=== PATIENT | female | born 1965 | race African-American/Black ===

== ENCOUNTER 2017-12-28 10:22 | Inpatient (IN) ==
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
[2017-12-28] MEDS ORDERED: Naloxone Inj 0.4 MG/ML Vial IV.PUSH PRN (11:07)
[2017-12-28] MEDS ORDERED: Post-op Orders (for Pharmacy) OTHER ONE (11:07)
[2017-12-28] MEDS ORDERED: Bisacodyl 10 MG Supp RECTAL PRN (11:07)
[2017-12-28 11:58] LABS: Baso % (Auto) 0.3 % (0.0-2.0); Hematocrit 29.2 % (35.0-46.0); Hemoglobin 9.3 gm/dL (11.6-15.3); Lymph # (Auto) 0.1 th/mm3 (1.0-4.8); Lymph % (Auto) 1.5 % (9.0-44.0); Mean Corpuscular HGB Conc 31.9 % (32.0-36.0); Mean Corpuscular Hemoglobin 28.2 pg (27.0-34.0); Mean Corpuscular Volume 88.4 fL (80.0-100.0); Mean Platelet Volume 8.9 fL (7.0-11.0); Mono # (Auto) 0.3 th/mm3 (0.0-0.9); Mono % (Auto) 4.8 % (0.0-8.0); Neut # (Auto) 5.3 th/mm3 (1.8-7.7); Neut % (Auto) 93.4 % (16.0-70.0); Platelet Count 65 th/mm3 (150-450); Red Cell Distribution Width 18.7 % (11.6-17.2); White Blood Count 5.6 th/mm3 (4.0-11.0)
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
[2017-12-28 12:30] LABS: Platelet Morphology Normal (Normal); Target Cells 1+
[2017-12-28 13:09] LABS: Activated Partial Thrombo Time 33.8 sec (24.3-30.1); INR 1.4 Ratio; Prothrombin Time 14.4 sec (9.8-11.6)
[2017-12-28 13:11] LABS: Albumin 2.4 g/dL (3.4-5.0); Anion Gap 12 meq/L (5-15); Aspartate Aminotransferase 78 U/L (15-37); Blood Urea Nitrogen 6 mg/dL (7-18); Calcium 7.9 mg/dL (8.5-10.1); Carbon Dioxide 25.1 meq/L (21.0-32.0); Chloride 106 meq/L (98-107); Glomerular Filtration Rate Greater Than 89 mL/min (>89); Glucose,Random 82 mg/dL (74-106); Sodium 143 meq/L (136-145)
[2017-12-28 13:14] LABS: Alanine Aminotransferase 24 U/L (10-53); Alkaline Phosphatase 109 U/L (45-117); Total Protein 7.7 g/dL (6.4-8.2)
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
[2017-12-28] MEDS: Sod Chloride 0.9% Inj 1,000 ML IV.CONT SCH ×2 (18:31→20:55)
[2017-12-28] MEDS: Senna/Docusate Sodium 8.6/50 MG Tablet PO SCH (20:54)
[2017-12-29 06:42] LABS: Baso % (Auto) 0.1 % (0.0-2.0); Hematocrit 36.6 % (35.0-46.0); Lymph # (Auto) 0.4 th/mm3 (1.0-4.8); Lymph % (Auto) 7.4 % (9.0-44.0); Mean Corpuscular HGB Conc 32.9 % (32.0-36.0); Mean Corpuscular Hemoglobin 28.8 pg (27.0-34.0); Mean Corpuscular Volume 87.5 fL (80.0-100.0); Mono # (Auto) 0.7 th/mm3 (0.0-0.9); Mono % (Auto) 14.5 % (0.0-8.0); Neut # (Auto) 3.8 th/mm3 (1.8-7.7); Platelet Count 62 th/mm3 (150-450); Red Blood Count 4.18 mil/mm3 (4.00-5.30); Red Cell Distribution Width 18.9 % (11.6-17.2); White Blood Count 4.8 th/mm3 (4.0-11.0)
[2017-12-29 06:50] LABS: Anion Gap 10 meq/L (5-15); Blood Urea Nitrogen 11 mg/dL (7-18); Calcium 7.8 mg/dL (8.5-10.1); Carbon Dioxide 25.4 meq/L (21.0-32.0); Chloride 103 meq/L (98-107); Glomerular Filtration Rate Greater Than 89 mL/min (>89); Glucose,Random 94 mg/dL (74-106); Potassium 3.7 meq/L (3.5-5.1); Sodium 138 meq/L (136-145)
[2017-12-29] MEDS: Senna/Docusate Sodium 8.6/50 MG Tablet PO SCH ×2 (08:53→20:22)
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
--- NOTE | 2017-12-29 12:29 | ECG ---
Date Performed: 12/28/2017 Time Performed: 21:25:00 PTAGE: 52 years EKG: Sinus rhythm NONSPECIFIC T-WAVE ABNORMALITY BORDERLINE ECG PREVIOUS TRACING : 08/06/2010 10.55 Since the previous tracing, no significant change noted DOCTOR: Francine Chadwick Interpretating Date/Time 12/29/2017 12:28:51
[2017-12-29] MEDS: Propranolol 10 MG Tablet PO SCH ×2 (12:44→20:22)
[2017-12-29] MEDS: Folic Acid 1 MG Tablet PO SCH (12:44)
[2017-12-29] MEDS: Lidocaine 5% Patch T-DERMAL SCH (12:45)
[2017-12-29] MEDS: Furosemide 40 MG Tablet PO SCH (12:45)
[2017-12-29] MEDS: Spironolactone 50 MG Tablet PO SCH ×2 (12:50→20:22)
--- NOTE | 2017-12-29 13:47 | XR ---
EXAM DATE: 12/29/2017 1:34 PM EDT AGE/SEX: 52 years / Female INDICATIONS: Increased right ankle pain CLINICAL DATA: This is the patient's initial encounter. Patient reports that signs and symptoms have been present for 1 day and indicates a pain score of 8/10. MEDICAL/SURGICAL HISTORY: . Right ankle fracture None. COMPARISON: [facility] [place], ANKLE COMPLETE RIGHT MIN 3V, 12/28/2017. . FINDINGS: Transverse fracture through the medial malleolus and lateral malleolus identified. Soft tissue swelli ng is seen. Splint in place. CONCLUSION: Stable appearance of the ankle. Electronically signed by: Scott Hernandez MD 12/29/2017 1:46 PM EDT
--- NOTE | 2017-12-29 14:15 | CT ---
EXAM DATE: 12/29/2017 2:09 PM EDT AGE/SEX: 52 years / Female INDICATIONS: Right ankle fracture. CLINICAL DATA: This is the patient's initial encounter. Patient reports that signs and symptoms have been present for 1 day and indicates a pain score of 8/10. MEDICAL/SURGICAL HISTORY: Hepatitis C. None. RADIATION DOSE: 5.12 CTDI (mGy) COMPARISON: [facility], ANKLE COMPLETE RIGHT MIN 3V, 12/29/2017. . TECHNIQUE: Multiple contiguous axial images were acquired using a multirow detector CT scanner witho ut contrast. Multiplanar reconstruction was performed in the sagittal and coronal planes. Using aut omated exposure control and adjustment of the mA and/or kV according to patient size, radiation dose was kept as low as reasonably achievable to obtain optimal diagnostic quality images. DICOM format i mage data is available electronically for review and comparison. FINDINGS: There is a comminuted fractures seen through the distal fibula at the level of the lateral malleolus, slightly displaced. In addition there is a transverse fracture through the medial malleolus. The tib iotalar joint is approximated. No other fractures are seen. CONCLUSION: 1. Distal tibia and fibular fractures are noted. Electronically signed by: Scott Hernandez MD 12/29/2017 2:14 PM EDT
[2017-12-29] MEDS ORDERED: Haloperidol Inj 5 MG/ML Ampul IV.PUSH PRN (16:59)
[2017-12-29] MEDS ORDERED: LORazepam 1 MG Tablet PO PRN (16:59)
[2017-12-29] MEDS ORDERED: Morphine Inj 4 MG/ML Vial IV.PUSH PRN (17:02)
[2017-12-29] MEDS ORDERED: Naloxone Inj 0.4 MG/ML Vial IV.PUSH PRN (17:02)
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
[2017-12-29] MEDS: traZODone 50 MG Tablet PO SCH (20:22)
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
[2017-12-30 04:27] LABS: Baso % (Auto) 0.3 % (0.0-2.0); Eos # (Auto) 0.1 th/mm3 (0.0-0.4); Eos % (Auto) 0.9 % (0.0-4.0); Hemoglobin 13.4 gm/dL (11.6-15.3); Lymph # (Auto) 0.7 th/mm3 (1.0-4.8); Lymph % (Auto) 12.1 % (9.0-44.0); Mean Corpuscular Hemoglobin 28.1 pg (27.0-34.0); Mean Corpuscular Volume 87.8 fL (80.0-100.0); Mean Platelet Volume 8.6 fL (7.0-11.0); Mono % (Auto) 15.5 % (0.0-8.0); Neut # (Auto) 4.4 th/mm3 (1.8-7.7); Neut % (Auto) 71.2 % (16.0-70.0); Platelet Count 84 th/mm3 (150-450); Red Blood Count 4.78 mil/mm3 (4.00-5.30); Red Cell Distribution Width 18.6 % (11.6-17.2); White Blood Count 6.2 th/mm3 (4.0-11.0)
[2017-12-30 04:41] LABS: Alanine Aminotransferase 28 U/L (10-53)
[2017-12-30 04:44] LABS: Alkaline Phosphatase 134 U/L (45-117); Total Protein 8.4 g/dL (6.4-8.2)
[2017-12-30 04:46] LABS: Albumin 2.4 g/dL (3.4-5.0); Anion Gap 8 meq/L (5-15); Aspartate Aminotransferase 70 U/L (15-37); Blood Urea Nitrogen 11 mg/dL (7-18); Calcium 8.2 mg/dL (8.5-10.1); Carbon Dioxide 28.8 meq/L (21.0-32.0); Chloride 98 meq/L (98-107); Glomerular Filtration Rate Greater Than 89 mL/min (>89); Glucose,Random 90 mg/dL (74-106); Sodium 135 meq/L (136-145)
[2017-12-30 04:47] LABS: Potassium 3.2 meq/L (3.5-5.1)
[2017-12-30 05:05] LABS: Platelet Morphology Normal (Normal)
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
[2017-12-30] MEDS: Folic Acid 1 MG Tablet PO SCH (08:19)
[2017-12-30] MEDS: Furosemide 40 MG Tablet PO SCH (08:19)
[2017-12-30] MEDS: Propranolol 10 MG Tablet PO SCH ×2 (08:19→20:13)
[2017-12-30] MEDS: Lidocaine 5% Patch T-DERMAL SCH (08:19)
[2017-12-30] MEDS: Spironolactone 50 MG Tablet PO SCH ×2 (08:19→20:13)
[2017-12-30] MEDS: Senna/Docusate Sodium 8.6/50 MG Tablet PO SCH ×2 (08:19→20:13)
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
[2017-12-30] MEDS ORDERED: Mag Sulf 1 gm/100 ml Premix 100 ML IV.SIG ONE (13:00)
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
[2017-12-30] MEDS ORDERED: Haloperidol Inj 5 MG/ML Ampul IV.PUSH PRN (15:59)
[2017-12-30] MEDS: traZODone 50 MG Tablet PO SCH (20:13)
[2017-12-31] MEDS ORDERED: Haloperidol Inj 5 MG/ML Ampul IV.PUSH ONE (00:30)
[2017-12-31 01:06] LABS: Hematocrit 42.1 % (35.0-46.0); Mean Corpuscular HGB Conc 33.2 % (32.0-36.0); Mean Corpuscular Hemoglobin 28.3 pg (27.0-34.0); Mean Corpuscular Volume 85.3 fL (80.0-100.0); Mean Platelet Volume 8.4 fL (7.0-11.0); Platelet Count 126 th/mm3 (150-450); Red Blood Count 4.93 mil/mm3 (4.00-5.30); Red Cell Distribution Width 18.3 % (11.6-17.2); White Blood Count 7.1 th/mm3 (4.0-11.0)
[2017-12-31 01:33] LABS: Anion Gap 13 meq/L (5-15); Blood Urea Nitrogen 8 mg/dL (7-18); Calcium 8.8 mg/dL (8.5-10.1); Carbon Dioxide 23.1 meq/L (21.0-32.0); Chloride 96 meq/L (98-107); Glomerular Filtration Rate Greater Than 89 mL/min (>89); Glucose,Random 83 mg/dL (74-106); Sodium 132 meq/L (136-145)
[2017-12-31 01:34] LABS: Potassium 3.4 meq/L (3.5-5.1)
--- NOTE | 2017-12-31 02:15 | CT ---
EXAM DATE: 12/31/2017 2:07 AM EDT AGE/SEX: 52 years / Female INDICATIONS: Altered mental status. CLINICAL DATA: This is the patient's initial encounter. Patient reports that signs and symptoms have been present for 1 day and indicates a pain score of Nonresponsive. MEDICAL/SURGICAL HISTORY: Anemia. Hepatitis C. Cardiovascular disease. Substance abuse None. RADIATION DOSE: 56.35 CTDI (mGy) COMPARISON: No prior exams available for comparison. TECHNIQUE: CT of the head without contrast. Using automated exposure control and adjustment of the mA and/or kV according to patient size, radiation dose was kept as low as reasonably achievable to ob tain optimal diagnostic quality images. DICOM format image data is available electronically for revi ew and comparison. FINDINGS: Cerebrum: There is mild generalized atrophy and ventricles are normal given the degree of atrophy. M ild periventricular white matter change is present. No midline shift, mass lesion, hemorrhage or acu te infarction. No extraaxial fluid collections are seen. Posterior Fossa: The cerebellum and brainstem demonstrate no acute abnormality. The 4th ventricle is midline. The cerebellopontine angle is within normal limits. Extracranial: The visualized sinuses are clear. Skull: The calvaria is intact. No skull fracture. CONCLUSION: No acute intracranial abnormality is identified. . Electronically signed by: Dalton Mann MD 12/31/2017 2:14 AM EDT
[2017-12-31 03:50] LABS: Hematocrit 38.1 % (35.0-46.0); Hemoglobin 12.5 gm/dL (11.6-15.3); Mean Corpuscular HGB Conc 32.7 % (32.0-36.0); Mean Corpuscular Hemoglobin 28.6 pg (27.0-34.0); Mean Corpuscular Volume 87.5 fL (80.0-100.0); Mean Platelet Volume 8.3 fL (7.0-11.0); Platelet Count 110 th/mm3 (150-450); Red Blood Count 4.35 mil/mm3 (4.00-5.30); Red Cell Distribution Width 18.5 % (11.6-17.2); White Blood Count 5.9 th/mm3 (4.0-11.0)
[2017-12-31 04:17] LABS: Anion Gap 13 meq/L (5-15); Blood Urea Nitrogen 8 mg/dL (7-18); Calcium 8.5 mg/dL (8.5-10.1); Carbon Dioxide 24.3 meq/L (21.0-32.0); Chloride 97 meq/L (98-107); Glomerular Filtration Rate Greater Than 89 mL/min (>89); Glucose,Random 78 mg/dL (74-106); Potassium 3.7 meq/L (3.5-5.1); Sodium 134 meq/L (136-145)
[2017-12-31] MEDS: Lidocaine 5% Patch T-DERMAL SCH (07:59)
[2017-12-31] MEDS: Folic Acid 1 MG Tablet PO SCH (08:02)
[2017-12-31] MEDS: Spironolactone 50 MG Tablet PO SCH ×2 (08:02→22:13)
[2017-12-31] MEDS: Propranolol 10 MG Tablet PO SCH ×2 (08:02→22:09)
[2017-12-31] MEDS: Furosemide 40 MG Tablet PO SCH (08:02)
[2017-12-31] MEDS: Senna/Docusate Sodium 8.6/50 MG Tablet PO SCH ×2 (08:02→22:09)
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
[2017-12-31] MEDS: traZODone 50 MG Tablet PO SCH (22:09)
[2018-01-01] MEDS: Spironolactone 50 MG Tablet PO SCH ×2 (09:00→23:21)
[2018-01-01] MEDS: Furosemide 40 MG Tablet PO SCH (09:00)
[2018-01-01] MEDS: Lidocaine 5% Patch T-DERMAL SCH (09:00)
[2018-01-01] MEDS: Propranolol 10 MG Tablet PO SCH ×2 (09:00→23:26)
[2018-01-01] MEDS: Senna/Docusate Sodium 8.6/50 MG Tablet PO SCH ×2 (09:00→23:20)
[2018-01-01] MEDS: Folic Acid 1 MG Tablet PO SCH (09:00)
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
[2018-01-01] MEDS: traZODone 50 MG Tablet PO SCH (23:21)
[2018-01-02] MEDS: Spironolactone 50 MG Tablet PO SCH ×2 (09:09→22:22)
[2018-01-02] MEDS: Folic Acid 1 MG Tablet PO SCH (09:09)
[2018-01-02] MEDS: Propranolol 10 MG Tablet PO SCH ×2 (09:09→22:22)
[2018-01-02] MEDS: Furosemide 40 MG Tablet PO SCH (09:10)
[2018-01-02] MEDS: Lidocaine 5% Patch T-DERMAL SCH (09:10)
[2018-01-02] MEDS: Senna/Docusate Sodium 8.6/50 MG Tablet PO SCH ×2 (09:10→22:22)
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
[2018-01-02] MEDS ORDERED: Neostigmine Inj 5 MG/5 ML Syringe IV.PUSH ONE (17:32)
[2018-01-02] MEDS ORDERED: Phenylephrine/NS 1000 MCG/10ML Syringe IV.PUSH ONE (17:32)
[2018-01-02] MEDS ORDERED: Glycopyrrolate Inj 1 MG/5 ML Syringe IV.PUSH ONE (17:32)
[2018-01-02] MEDS ORDERED: Lidocaine PF 1% Inj 5 ML Syringe INFILTRATN ONE (17:32)
[2018-01-02] MEDS ORDERED: Lidocaine 2% Inj 50 ML Vial ONE (17:35)
[2018-01-02] MEDS ORDERED: Bupivacaine PF 0.5% Inj 30 ML Vial ONE (19:41)
--- NOTE | 2018-01-02 20:01 | P.BOP ---
- Preoperative Diagnosis (1) Fracture of ankle, bimalleolar, right, closed - Postoperative Diagnosis (1) Fracture of ankle, bimalleolar, right, closed Date of procedure: 01/02/18 Procedure: 1) ORIF of the right ankle. Implants: see log Anesthesia: GETA Surgeon: Aye Villagomez DPM Estimated blood loss (mL): 15 Tourniquet time (min): 101 (Right thigh) Pathology: none sent Condition: stable Disposition: PACU
--- NOTE | 2018-01-02 20:11 | XR ---
EXAM DATE: 01/02/2018 8:03 PM EDT AGE/SEX: 52 years / Female INDICATIONS: ORIF right ankle. CLINICAL DATA: This is the patient's initial encounter. Patient reports that signs and symptoms have been present for 1 day and indicates a pain score of Nonresponsive. MEDICAL/SURGICAL HISTORY: None. None. COMPARISON: [facility] [place], CT ANKLE RIGHT W/O CONTRAST, 12/29/2017. . FINDINGS: Hardware is noted within the distal fibula and tibia status post ORIF. The bones are well aligned. CONCLUSION: Status post ORIF of right distal tibia and fibula with bones adequate in alignment. Electronically signed by: Ye William MD 01/02/2018 8:09 PM EDT
[2018-01-02] MEDS ORDERED: fentaNYL Citrate Inj 100 MCG/2 ML Ampul ONE (20:21)
--- NOTE | 2018-01-02 20:40 | XR ---
EXAM DATE: 01/02/2018 8:22 PM EDT AGE/SEX: 52 years / Female INDICATIONS: Post op, right ankle surgery. CLINICAL DATA: This is the patient's initial encounter. Patient reports that signs and symptoms have been present for 1 day and indicates a pain score of Nonresponsive. MEDICAL/SURGICAL HISTORY: Non-responsive. Non-responsive. COMPARISON: [facility], ANKLE COMPLETE RIGHT MIN 3V, 12/29/2017. . FINDINGS: Hardware is noted within the right distal fibula and tibia and appears to be adequate in position. CONCLUSION: Status post ORIF of right distal fibula and tibia with hardware in good position. Electronically signed by: Ye William MD 01/02/2018 8:38 PM EDT
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
[2018-01-02] MEDS: traZODone 50 MG Tablet PO SCH (22:22)
[2018-01-03 07:22] LABS: Baso % (Auto) 0.1 % (0.0-2.0); Hematocrit 39.8 % (35.0-46.0); Hemoglobin 13.1 gm/dL (11.6-15.3); Lymph # (Auto) 0.7 th/mm3 (1.0-4.8); Lymph % (Auto) 10.4 % (9.0-44.0); Mean Corpuscular HGB Conc 32.9 % (32.0-36.0); Mean Corpuscular Hemoglobin 28.7 pg (27.0-34.0); Mean Corpuscular Volume 87.3 fL (80.0-100.0); Mean Platelet Volume 8.2 fL (7.0-11.0); Mono # (Auto) 1.4 th/mm3 (0.0-0.9); Neut # (Auto) 4.9 th/mm3 (1.8-7.7); Neut % (Auto) 69.5 % (16.0-70.0); Platelet Count 119 th/mm3 (150-450); Red Blood Count 4.56 mil/mm3 (4.00-5.30); Red Cell Distribution Width 18.4 % (11.6-17.2)
[2018-01-03 07:41] LABS: Anion Gap 8 meq/L (5-15); Blood Urea Nitrogen 12 mg/dL (7-18); Carbon Dioxide 29.8 meq/L (21.0-32.0); Chloride 98 meq/L (98-107); Glomerular Filtration Rate Greater Than 89 mL/min (>89); Glucose,Random 115 mg/dL (74-106); Potassium 3.5 meq/L (3.5-5.1); Sodium 136 meq/L (136-145)
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
[2018-01-03] MEDS: Propranolol 10 MG Tablet PO SCH ×2 (09:50→22:26)
[2018-01-03] MEDS: Folic Acid 1 MG Tablet PO SCH (09:50)
[2018-01-03] MEDS: Spironolactone 50 MG Tablet PO SCH ×2 (09:50→22:26)
[2018-01-03] MEDS: Senna/Docusate Sodium 8.6/50 MG Tablet PO SCH ×2 (09:51→22:26)
[2018-01-03] MEDS: Furosemide 40 MG Tablet PO SCH (09:51)
[2018-01-03] MEDS: Lidocaine 5% Patch T-DERMAL SCH (11:56)
--- NOTE | 2018-01-03 15:15 | P.PNPOD ---
Subjective Interval history: s/p ORIF right bimalleolar ankle fracture, 01/02/18 Dr Villagomez Physical Exam Vital signs: Vital Signs 01/02/18 20:10 01/02/18 20:15 01/02/18 20:30 Temperature 97.4 F L Pulse Rate 78 72 74 Respiratory Rate 15 11 L 13 Blood Pressure 111/72 106/72 122/74 Pulse Oximetry 97 100 99 01/02/18 20:45 01/02/18 21:00 01/02/18 21:07 Temperature 97.2 F L Pulse Rate 73 74 78 Respiratory Rate 11 L 18 Blood Pressure 116/76 109/67 Pulse Oximetry 98 98 01/02/18 22:15 01/03/18 00:00 01/03/18 00:09 Temperature 97.3 F L Pulse Rate 80 75 Respiratory Rate 18 Blood Pressure 118/70 Pulse Oximetry 98 99 01/03/18 04:00 01/03/18 08:00 01/03/18 12:00 Temperature 97.5 F L 97.0 F L 97.3 F L Pulse Rate 82 79 76 Respiratory Rate 18 14 18 Blood Pressure 101/65 92/64 L 97/66 L Pulse Oximetry 98 98 94 L Intake & Output 01/02/18 01/03/18 01/03/18 18:59 06:59 18:59 Intake Total 1040 / 1040 Output Total 560 / 560 Balance 480 / 480 Weight 59.1 kg Intake: Oral 40 / 40 Anesthesia Amount 1000 / 1000 Output: Estimated Blood Loss 10 / 10 Urine Amount (Catheter) 550 / 550 Straight 550 / 550 Other: # Voids 1 Date of Last Bowel Movement 01/02/18 01/02/18 # Incontinent Bowel Movements 1 Narrative: Right ankle splint clean, dry, intact. Neurovascularly intact right lower extremity with brisk capillary refill and sensation intact to digits. Medications and Allergies Active Medications: Active Medications Al Hydroxide/Mg Hydroxide (Milk Of Magnesia Liq) 30 ml PO Q12H [facility] Last Admin: 01/03/18 09:51 Dose: Not Given Aripiprazole (Abilify) 20 mg PO DAILY [facility] Last Admin: 01/03/18 09:50 Dose: Not Given Bisacodyl (Dulcolax Supp) 10 mg RECTAL DAILY PRN PRN Reason: SEVERE CONSITIPATION Clonidine HCl (Catapres) 0.1 mg PO Q6H PRN PRN Reason: For SBP >/= 180, DBP >/= 100 Cyanocobalamin (Vitamin B12) 100 mcg PO DAILY [facility] Last Admin: 01/03/18 09:51 Dose: Not Given Cyclobenzaprine HCl (Flexeril) 5 mg PO Q8HR PRN PRN Reason: muscle spasms Diphenhydramine HCl (Benadryl) 25 mg PO Q6H PRN PRN Reason: ITCHING AND/OR RASH Flumazenil (Romazecon Inj) 0.2 mg IV.PUSH Q1M PRN PRN Reason: OVERSEDATION Folic Acid (Folic Acid) 1 mg PO DAILY [facility] Last Admin: 01/03/18 09:50 Dose: Not Given Furosemide (Lasix) 40 mg PO DAILY [facility] Last Admin: 01/03/18 09:51 Dose: Not Given Haloperidol Lactate (Haldol Inj) 2 mg IV.PUSH Q4H PRN PRN Reason: for severe agitation Last Admin: 12/30/17 21:08 Dose: 2 mg Ibuprofen (Motrin) 400 mg PO Q6HR PRN PRN Reason: PAIN SCALE 1 TO 2 Lactulose (Lactulose Liq) 30 ml PO DAILY [facility] Last Admin: 01/03/18 09:51 Dose: Not Given Lidocaine HCl (Lidoderm 5% Patch.12 Hr) 1 patch T-DERMAL DAILY [facility] Last Admin: 01/03/18 11:56 Dose: 1 patch Lorazepam (Ativan) 1 mg PO Q4H PRN PRN Reason: for CIWA 8-10 Last Admin: 12/30/17 20:25 Dose: 1 mg Lorazepam (Ativan) 2 mg PO Q2H PRN PRN Reason: for CIWA 11-14 Lorazepam (Ativan Inj) 2 mg IV.PUSH Q2H PRN PRN Reason: for CIWA 11-14 Last Admin: 12/31/17 07:58 Dose: 2 mg Lorazepam (Ativan Inj) 2 mg IV.PUSH Q1H PRN PRN Reason: for CIWA 15-20 Last Admin: 12/31/17 01:34 Dose: 2 mg Lorazepam (Ativan Inj) 2 mg IV.PUSH Q15M PRN PRN Reason: for CIWA > 20 Lorazepam (Ativan Inj) 1 mg IV.PUSH Q4H PRN PRN Reason: for CIWA 8-10 Miscellaneous (Pill Splitter) 1 each OTHER UNSCH PRN PRN Reason: SEE LABEL COMMENTS Miscellaneous Information ([facility] [place] [facility] [place] 1 each OTHER UNSCH PRN PRN Reason: SEE LABEL COMMENTS Stop: 01/03/18 20:26 Morphine Sulfate (Morphine Inj) 2 mg IV.PUSH Q4H PRN PRN Reason: BREAKTHROUGH PAIN Naloxone HCl (Narcan Inj) 0.4 mg IV.PUSH UNSCH PRN PRN Reason: SEE LABEL COMMENTS Ondansetron HCl (Zofran Inj) 4 mg IV.PUSH Q6H PRN PRN Reason: NAUSEA OR VOMITING Oxycodone HCl (Roxicodone) 5 mg PO Q4H PRN PRN Reason: PAIN SCALE 3 TO 5 Oxycodone HCl (Roxicodone) 10 mg PO Q4H PRN PRN Reason: PAIN SCALE 6 TO 10 Last Admin: 01/03/18 05:33 Dose: 10 mg Pantoprazole Sodium (Protonix) 40 mg PO BID [facility] Last Admin: 01/03/18 09:51 Dose: Not Given Patch Removal (Remove Old Patch) 1 each T-DERMAL [facility] Last Admin: 01/02/18 22:23 Dose: Not Given Propranolol HCl (Inderal) 10 mg PO BID [facility] Last Admin: 01/03/18 09:50 Dose: Not Given Senna/Docusate Sodium (Gladis-Colace) 1 tab PO BID [facility] Last Admin: 01/03/18 09:51 Dose: Not Given Sennosides (Senokot) 17.2 mg PO Q12H PRN PRN Reason: Moderate Constipation Sodium Chloride (Ns Flush) 2 ml IV.FLUSH UNSCH PRN PRN Reason: FLUSH AFTER USING IV ACCESS Spironolactone (Aldactone) 50 mg PO BID [facility] Last Admin: 01/03/18 09:50 Dose: Not Given Thiamine HCl (Vitamin B1) 100 mg PO DAILY [facility] Last Admin: 01/03/18 09:51 Dose: Not Given Trazodone HCl (Desyrel) 50 mg PO [facility] Last Admin: 01/02/18 22:22 Dose: Not Given Allergies Allergy/AdvReac Type Severity Reaction Status Date / Time No Known Allergies Allergy Unverified 12/28/17 10:40 Home Medications Medication Instructions Recorded Confirmed Type aripiprazole [Abilify] 20 mg PO DAILY 12/28/17 12/28/17 History cyanocobalamin-cobamamide [B12] 12/28/17 History folic acid 1 mg PO DAILY 12/28/17 12/28/17 History furosemide 40 mg PO DAILY 12/28/17 12/28/17 History pantoprazole 40 mg PO BID 12/28/17 12/28/17 History propranolol 10 mg PO BID 12/28/17 12/28/17 History spironolactone 50 mg PO BID 12/28/17 12/28/17 History trazodone 50 mg PO HS 12/28/17 12/28/17 History Results - Labs CBC & Chem 7: 01/03/18 06:52 01/03/18 06:52 Laboratory Results - last 24 hr 01/02/18 01/03/18 01/03/18 15:46 06:52 06:52 WBC 7.0 RBC 4.56 Hgb 13.1 Hct 39.8 MCV 87.3 MCH 28.7 MCHC 32.9 RDW 18.4 H Plt Count 119 L MPV 8.2 Neut % (Auto) 69.5 Lymph % (Auto) 10.4 [place] % (Auto) 20.0 H Eos % (Auto) 0.0 Baso % (Auto) 0.1 Neut # (Auto) 4.9 Lymph # (Auto) 0.7 L [place] # (Auto) 1.4 H Eos # (Auto) 0.0 Baso # (Auto) 0.0 WBC Differential . Differential Comment Auto diff final Sodium 136 Potassium 3.5 Chloride 98 Carbon Dioxide 29.8 Anion Gap 8 BUN 12 Creatinine 0.69 Estimated GFR Greater than 89 POC Glucose 94 Random Glucose 115 H Calcium 8.0 L 01/03/18 01/03/18 09:31 12:23 WBC RBC Hgb Hct MCV MCH MCHC RDW Plt Count MPV Neut % (Auto) Lymph % (Auto) [place] % (Auto) Eos % (Auto) Baso % (Auto) Neut # (Auto) Lymph # (Auto) [place] # (Auto) Eos # (Auto) Baso # (Auto) WBC Differential Differential Comment Sodium Potassium Chloride Carbon Dioxide Anion Gap BUN Creatinine Estimated GFR POC Glucose 163 H 108 Random Glucose Calcium - Imaging Impressions Ankle X-Ray 01/02/18 00:00 CONCLUSION: Status post ORIF of right distal fibula and tibia with hardware in good position. Ankle X-Ray 01/02/18 00:00 CONCLUSION: Status post ORIF of right distal tibia and fibula with bones adequate in alignment. Assessment and Plan - Assessment (1) Fracture of ankle, bimalleolar, right, closed Code(s): S82.841A - Displaced bimalleolar fracture of right lower leg, initial encounter for closed fracture Status: Acute Plan: No further surgery planned Nonweightbearing right lower extremity. Keep splint/dressing clean, dry, intact. Follow up with Dr Villagomez in 1 week after discharge in [place] office. Ok to transfer back to [facility] anytime, clear for d/c from Podiatry
[2018-01-03] MEDS: traZODone 50 MG Tablet PO SCH (22:27)
[2018-01-03] MEDS: Sod Chloride 0.9% Inj 1,000 ML IV.SIG SCH (23:30)
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
[2018-01-04] MEDS: Folic Acid 1 MG Tablet PO SCH (08:38)
[2018-01-04] MEDS: Sod Chloride 0.9% Inj 1,000 ML IV.SIG SCH ×2 (08:38→22:05)
[2018-01-04] MEDS: Senna/Docusate Sodium 8.6/50 MG Tablet PO SCH ×2 (08:38→22:05)
[2018-01-04] MEDS: Lidocaine 5% Patch T-DERMAL SCH (08:39)
[2018-01-04] MEDS: Spironolactone 50 MG Tablet PO SCH (08:39)
[2018-01-04] MEDS: Propranolol 10 MG Tablet PO SCH ×2 (08:39→22:05)
[2018-01-04] MEDS: Furosemide 40 MG Tablet PO SCH (08:39)
[2018-01-04] MEDS ORDERED: Sodium Chlor 0.9% Inj 500 ML IV.SIG SCH (09:00)
[2018-01-04] MEDS: Enoxaparin Inj 40 MG/0.4 ML Syringe SQ SCH (10:17)
[2018-01-05] MEDS: Spironolactone 50 MG Tablet PO SCH ×3 (00:16→21:59)
[2018-01-05] MEDS: traZODone 50 MG Tablet PO SCH ×2 (00:16→21:59)
[2018-01-05] MEDS: Propranolol 10 MG Tablet PO SCH ×2 (08:01→21:59)
[2018-01-05] MEDS: Lidocaine 5% Patch T-DERMAL SCH (08:01)
[2018-01-05] MEDS: Folic Acid 1 MG Tablet PO SCH (08:01)
[2018-01-05] MEDS: Enoxaparin Inj 40 MG/0.4 ML Syringe SQ SCH (08:02)
[2018-01-05] MEDS: Furosemide 40 MG Tablet PO SCH (08:02)
[2018-01-05] MEDS: Senna/Docusate Sodium 8.6/50 MG Tablet PO SCH ×2 (08:02→21:59)
[2018-01-05] MEDS: Sod Chloride 0.9% Inj 1,000 ML IV.SIG SCH ×2 (08:03→14:55)
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
[2018-01-06] MEDS: Sod Chloride 0.9% Inj 1,000 ML IV.SIG SCH ×2 (00:46→09:58)
[2018-01-06] MEDS ORDERED: Sod Chloride 0.9% Inj 1,000 ML IV.SIG SCH (07:30)
[2018-01-06] MEDS ORDERED: Sod Chloride 0.9% Inj 1,000 ML IV.SIG ONE (07:45)
[2018-01-06] MEDS: Enoxaparin Inj 40 MG/0.4 ML Syringe SQ SCH (09:00)
[2018-01-06] MEDS: Spironolactone 50 MG Tablet PO SCH ×2 (09:01→21:18)
[2018-01-06] MEDS: Folic Acid 1 MG Tablet PO SCH (09:01)
[2018-01-06] MEDS: Propranolol 10 MG Tablet PO SCH ×2 (09:01→21:18)
[2018-01-06] MEDS: Furosemide 40 MG Tablet PO SCH (09:02)
[2018-01-06] MEDS: Senna/Docusate Sodium 8.6/50 MG Tablet PO SCH ×2 (09:02→21:18)
[2018-01-06] MEDS: Lidocaine 5% Patch T-DERMAL SCH (09:02)
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
[2018-01-06] MEDS: traZODone 50 MG Tablet PO SCH (21:18)
[2018-01-07] MEDS: Sod Chloride 0.9% Inj 1,000 ML IV.SIG SCH (07:12)
[2018-01-07] MEDS: Enoxaparin Inj 40 MG/0.4 ML Syringe SQ SCH ×2 (07:54→12:19)
[2018-01-07] MEDS: Folic Acid 1 MG Tablet PO SCH ×2 (07:54→12:19)
[2018-01-07] MEDS: Spironolactone 50 MG Tablet PO SCH ×3 (07:55→20:26)
[2018-01-07] MEDS: Furosemide 40 MG Tablet PO SCH ×2 (07:55→12:19)
[2018-01-07] MEDS: Propranolol 10 MG Tablet PO SCH ×3 (07:55→20:27)
[2018-01-07] MEDS: Lidocaine 5% Patch T-DERMAL SCH ×2 (07:56→12:19)
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
[2018-01-07] MEDS: Senna/Docusate Sodium 8.6/50 MG Tablet PO SCH ×2 (12:19→20:32)
[2018-01-07] MEDS: traZODone 50 MG Tablet PO SCH (20:26)
[2018-01-08] MEDS: Spironolactone 50 MG Tablet PO SCH ×2 (08:45→20:06)
[2018-01-08] MEDS: Folic Acid 1 MG Tablet PO SCH (08:45)
[2018-01-08] MEDS: Propranolol 10 MG Tablet PO SCH ×2 (08:46→20:06)
[2018-01-08] MEDS: Senna/Docusate Sodium 8.6/50 MG Tablet PO SCH ×2 (08:46→20:06)
[2018-01-08] MEDS: Lidocaine 5% Patch T-DERMAL SCH (08:46)
[2018-01-08] MEDS: Enoxaparin Inj 40 MG/0.4 ML Syringe SQ SCH (08:46)
[2018-01-08] MEDS: Furosemide 40 MG Tablet PO SCH (08:46)
[2018-01-08] MEDS: Sod Chloride 0.9% Inj 1,000 ML IV.SIG SCH (08:50)
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
[2018-01-08] MEDS: traZODone 50 MG Tablet PO SCH (20:06)
[2018-01-09] MEDS: Enoxaparin Inj 40 MG/0.4 ML Syringe SQ SCH (08:19)
[2018-01-09] MEDS: Propranolol 10 MG Tablet PO SCH ×2 (08:19→20:24)
[2018-01-09] MEDS: Lidocaine 5% Patch T-DERMAL SCH (08:19)
[2018-01-09] MEDS: Spironolactone 50 MG Tablet PO SCH ×2 (08:19→20:24)
[2018-01-09] MEDS: Furosemide 40 MG Tablet PO SCH (08:19)
[2018-01-09] MEDS: Folic Acid 1 MG Tablet PO SCH (08:19)
[2018-01-09] MEDS: Senna/Docusate Sodium 8.6/50 MG Tablet PO SCH ×2 (08:52→20:24)
[2018-01-09] MEDS: Sod Chloride 0.9% Inj 1,000 ML IV.SIG SCH ×2 (08:52→18:05)
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
[2018-01-09] MEDS: traZODone 50 MG Tablet PO SCH (20:24)
[2018-01-10] MEDS: Furosemide 40 MG Tablet PO SCH (09:18)
[2018-01-10] MEDS: Propranolol 10 MG Tablet PO SCH ×2 (09:18→20:00)
[2018-01-10] MEDS: Spironolactone 50 MG Tablet PO SCH ×2 (09:18→20:00)
[2018-01-10] MEDS: Enoxaparin Inj 40 MG/0.4 ML Syringe SQ SCH (09:18)
[2018-01-10] MEDS: Folic Acid 1 MG Tablet PO SCH (09:18)
[2018-01-10] MEDS: Lidocaine 5% Patch T-DERMAL SCH (09:18)
[2018-01-10] MEDS: Senna/Docusate Sodium 8.6/50 MG Tablet PO SCH ×2 (09:19→20:01)
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
[2018-01-10] MEDS: Ibuprofen 400 MG Tablet PO PRN ×2 (12:33→18:31)
--- NOTE | 2018-01-10 13:44 | P.PNPOD ---
Subjective Interval history: s/p Right ankle ORIF DOS 01/02/18 Seen at [facility] with nursing staff in [facility]. AAO x 3 No sob and no calf pain. Physical Exam Vital signs: Vital Signs 01/09/18 15:25 01/09/18 20:00 01/09/18 20:06 Temperature 98.2 F 98.1 F Pulse Rate 90 80 80 Respiratory Rate 17 20 Blood Pressure 91/50 L 92/53 L Pulse Oximetry 97 94 L 01/10/18 00:00 01/10/18 00:03 01/10/18 04:00 Temperature 98.3 F 98 F Pulse Rate 80 79 77 Respiratory Rate 16 18 Blood Pressure 91/50 L 95/52 L Pulse Oximetry 93 L 93 L 01/10/18 08:00 Temperature 98.4 F Pulse Rate 69 Respiratory Rate 16 Blood Pressure 88/55 L Pulse Oximetry 94 L Intake & Output 01/09/18 01/10/18 01/10/18 18:59 06:59 18:59 Intake Total 1850 / 1850 240 / 240 Output Total 1000 / 1000 400 / 400 300 / 300 Balance 850 / 850 -160 / -160 -300 / -300 Weight 58.4 kg Intake: IV 1000 / 1000 NS Inj 1,000 ML @ 50 mls/hr IV. 1000 / 1000 SIG .Q20H [facility] Rx#:[id number] Oral 850 / 850 240 / 240 Output: Urine Amount (Catheter) 1000 / 1000 400 / 400 300 / 300 Indwelling Urethral Catheter 1000 / 1000 400 / 400 300 / 300 Other: Date of Last Bowel Movement 01/09/18 01/08/18 01/08/18 # Bowel Movements 1 Narrative: RLE Incision x 2 intact. Minimal edema, no erythema and no drainage. CFT < 3 sec. Passive ROM intact. Protective sensation intact. Medications and Allergies Active Medications: Active Medications Al Hydroxide/Mg Hydroxide (Milk Of Magnesia Liq) 30 ml PO Q12H [facility] Last Admin: 01/10/18 09:19 Dose: Not Given Aripiprazole (Abilify) 20 mg PO DAILY [facility] Last Admin: 01/10/18 09:18 Dose: 20 mg Bisacodyl (Dulcolax Supp) 10 mg RECTAL DAILY PRN PRN Reason: SEVERE CONSITIPATION Clonidine HCl (Catapres) 0.1 mg PO Q6H PRN PRN Reason: For SBP >/= 180, DBP >/= 100 Cyanocobalamin (Vitamin B12) 100 mcg PO DAILY [facility] Last Admin: 01/10/18 09:18 Dose: 100 mcg Cyclobenzaprine HCl (Flexeril) 5 mg PO Q8HR PRN PRN Reason: muscle spasms Diphenhydramine HCl (Benadryl) 25 mg PO Q6H PRN PRN Reason: ITCHING AND/OR RASH Enoxaparin Sodium (Lovenox Inj) 40 mg SQ DAILY [facility] Last Admin: 01/10/18 09:18 Dose: 40 mg Flumazenil (Romazecon Inj) 0.2 mg IV.PUSH Q1M PRN PRN Reason: OVERSEDATION Folic Acid (Folic Acid) 1 mg PO DAILY [facility] Last Admin: 01/10/18 09:18 Dose: 1 mg Furosemide (Lasix) 40 mg PO DAILY [facility] Last Admin: 01/10/18 09:18 Dose: Not Given Haloperidol Lactate (Haldol Inj) 2 mg IV.PUSH Q4H PRN PRN Reason: for severe agitation Last Admin: 12/30/17 21:08 Dose: 2 mg Sodium Chloride (Ns Inj) 1,000 mls @ 50 mls/hr IV.SIG .Q20H [facility] Last Admin: 01/09/18 18:05 Dose: 50 mls/hr Sodium Chloride (Ns Inj) 500 mls @ 250 mls/hr IV.SIG BOLUS [facility] Last Infusion: 01/04/18 11:15 Dose: Infused Ibuprofen (Motrin) 400 mg PO Q6HR PRN PRN Reason: PAIN SCALE 1 TO 2 Last Admin: 01/10/18 12:33 Dose: 400 mg Lactulose (Lactulose Liq) 30 ml PO DAILY [facility] Last Admin: 01/10/18 09:18 Dose: Not Given Lidocaine HCl (Lidoderm 5% Patch.12 Hr) 1 patch T-DERMAL DAILY [facility] Last Admin: 01/10/18 09:18 Dose: 1 patch Miscellaneous (Pill Splitter) 1 each OTHER UNSCH PRN PRN Reason: SEE LABEL COMMENTS Naloxone HCl (Narcan Inj) 0.4 mg IV.PUSH UNSCH PRN PRN Reason: SEE LABEL COMMENTS Ondansetron HCl (Zofran Inj) 4 mg IV.PUSH Q6H PRN PRN Reason: NAUSEA OR VOMITING Oxycodone HCl (Roxicodone) 5 mg PO Q4H PRN PRN Reason: PAIN SCALE 3 TO 5 Last Admin: 01/09/18 20:28 Dose: 5 mg Oxycodone HCl (Roxicodone) 10 mg PO Q4H PRN PRN Reason: PAIN SCALE 6 TO 10 Last Admin: 01/03/18 05:33 Dose: 10 mg Pantoprazole Sodium (Protonix) 40 mg PO BID [facility] Last Admin: 01/10/18 09:18 Dose: 40 mg Patch Removal (Remove Old Patch) 1 each T-DERMAL HS [facility] Last Admin: 01/09/18 20:28 Dose: 1 each Propranolol HCl (Inderal) 10 mg PO BID [facility] Last Admin: 01/10/18 09:18 Dose: Not Given Senna/Docusate Sodium (Gladis-Colace) 1 tab PO BID [facility] Last Admin: 01/10/18 09:19 Dose: Not Given Sennosides (Senokot) 17.2 mg PO Q12H PRN PRN Reason: Moderate Constipation Sodium Chloride (Ns Flush) 2 ml IV.FLUSH UNSCH PRN PRN Reason: FLUSH AFTER USING IV ACCESS Spironolactone (Aldactone) 50 mg PO BID [facility] Last Admin: 01/10/18 09:18 Dose: Not Given Thiamine HCl (Vitamin B1) 100 mg PO DAILY [facility] Last Admin: 01/10/18 09:18 Dose: 100 mg Trazodone HCl (Desyrel) 50 mg PO HS [facility] Last Admin: 01/09/18 20:24 Dose: 50 mg Allergies Allergy/AdvReac Type Severity Reaction Status Date / Time No Known Allergies Allergy Unverified 12/28/17 10:40 Home Medications Medication Instructions Recorded Confirmed Type aripiprazole [Abilify] 20 mg PO DAILY 12/28/17 12/28/17 History cyanocobalamin-cobamamide [B12] 12/28/17 History folic acid 1 mg PO DAILY 12/28/17 12/28/17 History furosemide 40 mg PO DAILY 12/28/17 12/28/17 History pantoprazole 40 mg PO BID 12/28/17 12/28/17 History propranolol 10 mg PO BID 12/28/17 12/28/17 History spironolactone 50 mg PO BID 12/28/17 12/28/17 History trazodone 50 mg PO HS 12/28/17 12/28/17 History Results - Labs CBC & Chem 7: 01/03/18 06:52 01/03/18 06:52 Assessment and Plan - Assessment (1) Fracture of ankle, bimalleolar, right, closed Code(s): S82.841A - Displaced bimalleolar fracture of right lower leg, initial encounter for closed fracture Status: Acute - Plan Dressing change 01/10/18 Continue with NWB Suture removal 20days post op. OK to transfer per Podiatry. Spoke to receiving physician Dr Martínez. F/U with Podiatry with in 1 week of d/c
[2018-01-10] MEDS: Sod Chloride 0.9% Inj 1,000 ML IV.SIG SCH (17:29)
[2018-01-10] MEDS: traZODone 50 MG Tablet PO SCH (20:00)
== END 2018-01-10 21:45 | disposition short-term general hospital (02) ==
LOC: NEPE 10:22 → NEDA 11:04 → N06 14:06
PROVIDERS: ADMIT Surgery; ATTEND Surgery
PROC: ORIFANK (2018-01-02 17:32)